=== PATIENT | female | born 1990 | race Asian ===

== ENCOUNTER 2019-07-06 16:42 | Emergency (ER) | payer OTHER ==
[~2019-07-06] VITALS: Ht 154.9 cm; Wt 64.9 kg
[2019-07-06 17:01] VITALS: Ht 154.9 cm; Wt 64.9 kg
[2019-07-06 21:43] VITALS: BP 121/80
== END 2019-07-06 21:43 | disposition home or self-care (01) ==
LOC: ED 16:42
DX: S02.609A Fracture of mandible, unspecified, initial encounter for closed fracture (principal); J45.909 Unspecified asthma, uncomplicated; W50.0XXA Accidental hit or strike by another person, initial encounter; Y93.89 Activity, other specified; Y92.89 Other specified places as the place of occurrence of the external cause; Y99.8 Other external cause status

== ENCOUNTER 2020-01-19 09:06 | Emergency (ER) | payer BC, OTHER ==
[~2020-01-19] VITALS: Ht 160 cm; Wt 63.5 kg
[2020-01-19 09:15] VITALS: Ht 160 cm; Wt 63.5 kg
[2020-01-19 10:41] VITALS: BP 108/71
== END 2020-01-19 10:41 | disposition home or self-care (01) ==
LOC: ED 09:06
DX: R51 Headache (principal); J45.909 Unspecified asthma, uncomplicated

== ENCOUNTER 2020-05-20 00:24 | Emergency (ER) | payer BC, OTHER ==
[~2020-05-20] VITALS: Ht 154.9 cm; Wt 67.1 kg
[2020-05-20 00:25] VITALS: Ht 154.9 cm; Wt 67.1 kg
[2020-05-20 01:14] VITALS: BP 112/77
== END 2020-05-20 01:14 | disposition home or self-care (01) ==
LOC: ED 00:24
DX: R51.9 Headache, unspecified (principal); J45.909 Unspecified asthma, uncomplicated